=== PATIENT | female | born 1985 | race Caucasian/White ===

== ENCOUNTER 2019-03-02 14:00 | Emergency (ER) | payer SELFPAY ==
--- NOTE | 2019-03-02 15:43 | EDM.PDOC ---
ED HPI GENERAL MEDICAL PROBLEM - General Chief Complaint: Abdominal Pain Stated Complaint: 9 1/2 WEEKS PG - ABDOMINAL PAIN Time Seen by Provider: 03/02/19 14:14 Source of Information: Reports: Patient, RN Notes Reviewed History Limitations: Reports: No Limitations - History of Present Illness INITIAL COMMENTS - FREE TEXT/NARRATIVE: Patient is a 33-year-old female who presents to the ED for the evaluation of left lower quadrant pain. She states that she is around 9-1/2 weeks . She notes that the left lower quadrant pain started 3 days ago with some left flank pain. She drink more fluids because she was worried about a possible kidney infection as she has history of those. She notes that the pain initially got better over the weekend but today the pain came back at around 11 AM and has not let up since. She denies any fevers/chills, dysuria, urgency, frequency, vaginal bleeding, history of diverticulitis and does not have any CVA tenderness at this time, she denies any history of ovarian cysts as well. There is somewhat of a language barrier as she is not fluent in [place] and speaks mostly [place]. Her significant other is present in the room to interpret for her. The family is not from the area and they have not had an initial OB visit but plan to do their OB doctoring in their home town. 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: - Past Surgical History Female Surgical History: Reports: Section Social & Family History - Family History Family Medical History: Noncontributory - Tobacco Use Smoking Status *Q: Former Smoker Used Tobacco, but Quit: Yes Month/Year Tobacco Last Used: 2019 - Caffeine Use Caffeine Use: Reports: Coffee - Recreational Drug Use Recreational Drug Use: No ED ROS GENERAL - Review of Systems Review Of Systems: See Below Constitutional: Reports: No Symptoms HEENT: Reports: No Symptoms Respiratory: Reports: No Symptoms Cardiovascular: Reports: No Symptoms Endocrine: Reports: No Symptoms GI/Abdominal: Reports: Abdominal Pain (LLQ). Denies: Anorexia, Bloody Stool, Constipation, Diarrhea, Nausea, Vomiting Musculoskeletal: Reports: Other (left flank pain) Skin: Reports: No Symptoms Neurological: Reports: No Symptoms Psychiatric: Reports: No Symptoms Hematologic/Lymphatic: Reports: No Symptoms Immunologic: Reports: No Symptoms ED EXAM, GI/ABD - Physical Exam Exam: See Below Exam Limited By: Language Barrier (significant other present for exam and helps for interpretation.) General Appearance: Alert, WD/WN, No Apparent Distress Eyes: Bilateral: Normal Appearance Ears: Normal External Exam Nose: Normal Inspection Throat/Mouth: Normal Inspection, Normal Lips, Normal Teeth, Normal Gums, Normal Oropharynx, Normal Voice, No Airway Compromise Head: Atraumatic, Normocephalic Neck: Normal Inspection Respiratory/Chest: No Respiratory Distress, Lungs Clear, Normal Breath Sounds, No Accessory Muscle Use, Chest Non-Tender Cardiovascular: Normal Peripheral Pulses, Regular Rate, Rhythm, No Murmur GI/Abdominal Exam: Normal Bowel Sounds, Soft, No Distention, Tender (LLQ) Back Exam: Normal Inspection. No: CVA Tenderness (L), CVA Tenderness (R) Extremities: Normal Inspection, Normal Capillary Refill Neurological: Alert, Oriented, Normal Cognition, No Motor/Sensory Deficits Psychiatric: Normal Affect, Normal Mood Course - Vital Signs Last Recorded V/S: Last Vital Signs Temp 98.2 F 03/02/19 14:07 Pulse 80 03/02/19 14:07 Resp 16 03/02/19 14:07 BP 124/86 03/02/19 14:07 Pulse Ox 99 03/02/19 14:07 - Orders/Labs/Meds Labs: Laboratory Tests 03/02/19 03/02/19 03/02/19 Range/Units 14:20 14:20 15:25 WBC 7.54 (3.98-10.04) K/mm3 RBC 4.08 (3.98-5.22) M/mm3 Hgb 12.6 (11.2-15.7) gm/L Hct 38.6 (34.1-44.9) % MCV 94.6 (79.4-94.8) fl MCH 30.9 (25.6-32.2) pg MCHC 32.6 (32.2-35.5) g/dl RDW Std Deviation 43.6 (36.4-46.3) fL Plt Count 244 (182-369) K/mm3 MPV 10.9 (9.4-12.3) fl Neutrophils % (Manual) 60 (40-60) % Band Neutrophils % 2 (0-10) % Lymphocytes % (Manual) 30 (20-40) % Atypical Lymphs % 0 % Monocytes % (Manual) 7 (2-10) % Eosinophils % (Manual) 1 (0.7-5.8) % Basophils % (Manual) 0 L (0.1-1.2) Platelet Estimate Adequate RBC Morph Comment Normal Sodium (136-145) mEq/L Potassium (3.5-5.1) mEq/L Chloride (98-107) mEq/L Carbon Dioxide (21-32) mEq/L Anion Gap (5-15) BUN (7-18) mg/dL Creatinine (0.55-1.02) mg/dL Est Cr Clr Drug Dosing mL/min Estimated GFR (MDRD) (>60) mL/min BUN/Creatinine Ratio (14-18) Glucose (74-106) mg/dL Calcium (8.5-10.1) mg/dL Total Bilirubin (0.2-1.0) mg/dL AST (15-37) U/L ALT (14-59) U/L Alkaline Phosphatase (46-116) U/L C-Reactive Protein (<1.0) mg/dL Total Protein (6.4-8.2) g/dl Albumin (3.4-5.0) g/dl Globulin gm/dL Albumin/Globulin Ratio (1-2) HCG, Quant mIU/mL Urine Color Yellow (Yellow) Urine Appearance Slt cloudy H (Clear) Urine pH 7.5 (5.0-8.0) Ur Specific [place] 1.020 (1.005-1.030) Urine Protein Negative (Negative) Urine Glucose (UA) Negative (Negative) Urine Ketones Negative (Negative) Urine Occult Blood Trace-lysed H (Negative) Urine Nitrite Negative (Negative) Urine Bilirubin Negative (Negative) Urine Urobilinogen 0.2 (0.2-1.0) Ur Leukocyte Esterase Negative (Negative) Urine RBC 0-5 (0-5) /hpf Urine WBC 0-5 (0-5) /hpf Ur Epithelial Cells 5-10 H (0-5) /hpf Urine Bacteria Few (FEW) /hpf Urine Mucus Few (FEW) /hpf Urine HCG, Qual Positive (NEGATIVE) 03/02/19 Range/Units 15:25 WBC (3.98-10.04) K/mm3 RBC (3.98-5.22) M/mm3 Hgb (11.2-15.7) gm/L Hct (34.1-44.9) % MCV (79.4-94.8) fl MCH (25.6-32.2) pg MCHC (32.2-35.5) g/dl RDW Std Deviation (36.4-46.3) fL Plt Count (182-369) K/mm3 MPV (9.4-12.3) fl Neutrophils % (Manual) (40-60) % Band Neutrophils % (0-10) % Lymphocytes % (Manual) (20-40) % Atypical Lymphs % % Monocytes % (Manual) (2-10) % Eosinophils % (Manual) (0.7-5.8) % Basophils % (Manual) (0.1-1.2) Platelet Estimate RBC Morph Comment Sodium 138 (136-145) mEq/L Potassium 3.8 (3.5-5.1) mEq/L Chloride 104 (98-107) mEq/L Carbon Dioxide 27 (21-32) mEq/L Anion Gap 10.8 (5-15) BUN 14 (7-18) mg/dL Creatinine 0.8 (0.55-1.02) mg/dL Est Cr Clr Drug Dosing 95.45 mL/min Estimated GFR (MDRD) > 60 (>60) mL/min BUN/Creatinine Ratio 17.5 (14-18) Glucose 91 (74-106) mg/dL Calcium 9.0 (8.5-10.1) mg/dL Total Bilirubin 0.2 (0.2-1.0) mg/dL AST 17 (15-37) U/L ALT 21 (14-59) U/L Alkaline Phosphatase 48 (46-116) U/L C-Reactive Protein < 0.2 (<1.0) mg/dL Total Protein 6.8 (6.4-8.2) g/dl Albumin 3.5 (3.4-5.0) g/dl Globulin 3.3 gm/dL Albumin/Globulin Ratio 1.1 (1-2) HCG, Quant 314538.0 mIU/mL Urine Color (Yellow) Urine Appearance (Clear) Urine pH (5.0-8.0) Ur Specific [place] (1.005-1.030) Urine Protein (Negative) Urine Glucose (UA) (Negative) Urine Ketones (Negative) Urine Occult Blood (Negative) Urine Nitrite (Negative) Urine Bilirubin (Negative) Urine Urobilinogen (0.2-1.0) Ur Leukocyte Esterase (Negative) Urine RBC (0-5) /hpf Urine WBC (0-5) /hpf Ur Epithelial Cells (0-5) /hpf Urine Bacteria (FEW) /hpf Urine Mucus (FEW) /hpf Urine HCG, Qual (NEGATIVE) - Re-Assessments/Exams Free Text/Narrative Re-Assessment/Exam: 03/02/19 15:46 Patient presents to the ED for the evaluation of left lower quadrant pain. Have ordered a UA, CBC, CMP, CRP, hCG qualitative and quantitative collection for further evaluation. Departure - Departure Time of Disposition: 17:15 Disposition: Home, Self-Care 01 Condition: Fair Clinical Impression: Colicky LLQ abdominal pain - Discharge Information *PRESCRIPTION DRUG MONITORING PROGRAM REVIEWED*: No *COPY OF PRESCRIPTION DRUG MONITORING REPORT IN PATIENT RANGEL: No Instructions: Flank Pain, Adult, [id number], Round Ligament Pain Referrals: PCP,None [Primary Care Provider] - Forms: ED Department Discharge Additional Instructions: You have been evaluated in the ED today for your left lower abdominal pain. Your hormone level is in an appropriate level for your gestational age. The pain you're having may be likely due to stretching of the ligaments due to the increasing uterus size, or the possibility of a passing kidney stone. Your urinalysis did not demonstrate any bacterial infection at this time however there was a small amount of trace blood cells in your urine which would also be indicative of a small kidney stone. Please increase your fluid intake and you may take [id number] Tylenol for pain relief. Do not take over 4000mg in a 24 hour time span however. If you should develop increasing abdominal pains, vaginal bleeding, this would be cause for concern to return to the ED immediately for re-evaluation. Please return to the ED if your symptoms change or worsen.
== END 2019-03-02 17:36 | disposition home or self-care (01) ==
LOC: JD.ED 14:00
DX: O99.89 Other specified diseases and conditions complicating pregnancy, childbirth and the puerperium (principal); R10.32 Left lower quadrant pain; O09.511 Supervision of elderly primigravida, first trimester; Z3A.09 9 weeks gestation of pregnancy; Z87.891 Personal history of nicotine dependence
CPT/HCPCS: 36415; 80053; 81001; 81025; 84702; 85007; 85027; 86140; 99283; 99284

== ENCOUNTER 2019-03-16 22:19 | Inpatient (IN) | payer OTHER ==
--- NOTE | 2019-03-16 22:49 | EDM.PDOC ---
ED HPI GENERAL MEDICAL PROBLEM - General Chief Complaint: Flank Pain Stated Complaint: 12WKS PG/LOWER BACK PAIN Time Seen by Provider: 03/16/19 22:49 Source of Information: Reports: Patient History Limitations: Reports: No Limitations - History of Present Illness INITIAL COMMENTS - FREE TEXT/NARRATIVE: 33-year-old female who is 2 para 1 presents to the ED with fever chills and rigors at the time I'm seeing her. Pain started in bilateral flank about 1400 hrs. today. Worse on the left as compared to the right. Pain radiates around to the left lower abdomen and groin. She developed fever and chills this evening. She does complain of mild dysuria both at onset of micturition and terminal dysuria. Has not noticed any blood in her urine. Has no history of kidney stones. Abdominal surgery as a performed for first . Denies cough or sputum production. Loss of appetite did not eat any supper. Is feeling nauseated without vomiting yet. She doesn't think she's ever had a kidney infection before. Onset: Today Onset Date: 03/16/19 Onset Time: 14:00 Duration: Hour(s):, Getting Worse Location: Reports: Generalized (Generalized back pain worse on the left side as compared to the right. Development of fever chills with rigors tonight. She is shaking with chills at the time of my examination. She is warm to palpation.) Quality: Reports: Ache, Pressure Severity: Moderate Improves with: Reports: None (Pain is 8 out of 10 in left kidney area.) Worsens with: Reports: None Context: Reports: Other (Acute onset of fever chills and bilateral back pain suggestive of pyelonephritis. Complicated by 12 week gestation.). Denies: Activity, Exercise, Lifting, Sick Contact, Trauma Associated Symptoms: Reports: Fever/Chills, Loss of Appetite, Malaise, Nausea/ Vomiting, Weakness. Denies: Confusion, Chest Pain, Cough, cough w sputum, Diaphoresis, Headaches, Rash, Seizure (Nausea without vomiting), Shortness of Breath, Syncope Treatments CLERICAL SPECIALIST: Reports: Acetaminophen, Other (see below) Other Treatments CLERICAL SPECIALIST: tylenol Bilateral Flank Pain Score (Numeric/FACES): 10 - Related Data Allergies Allergy/AdvReac Type Severity Reaction Status Date / Time No Known Allergies Allergy Verified 03/02/19 14:07 Home Meds: Home Meds PNV95/Ferrous Fumarate/FA [ Tablet] 1 tab PO DAILY 03/16/19 [History] Past Medical History Genitourinary History: Reports: Pyelonephritis, 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 This would make her 13 weeks 6 days by dates. She has not yet had any care and has not had an ultrasound in .) - Past Surgical History Female Surgical History: Reports: Section Social & Family History - Family History Family Medical History: Noncontributory - Tobacco Use Smoking Status *Q: Former Smoker Used Tobacco, but Quit: Yes Month/Year Tobacco Last Used: 3 months - Caffeine Use Caffeine Use: Reports: Coffee - Recreational Drug Use Recreational Drug Use: No - Living Situation & Occupation Living situation: Reports: Single Occupation: Employed ED ROS GENERAL - Review of Systems Review Of Systems: See Below Constitutional: Reports: Fever, Chills, Malaise, Weakness, Fatigue, Decreased Appetite HEENT: Reports: No Symptoms Respiratory: Reports: No Symptoms Cardiovascular: Reports: No Symptoms Endocrine: Reports: No Symptoms GI/Abdominal: Reports: Abdominal Pain (Left upper quadrant left jose miguel-abdominal pain rating down towards her groin.), Other (Bowel movement today was normal without any blood.). Denies: Constipation, Diarrhea, Decreased Appetite : Reports: Dysuria, Flank Pain (Both at onset of micturition and terminal dysuria.), Frequency, Other (Currently 13 weeks 6 days by dates). Denies: Hematuria ( Lateral worked much worse on the left and on the right.) Musculoskeletal: Reports: Back Pain Skin: Reports: No Symptoms Neurological: Reports: No Symptoms Psychiatric: Reports: No Symptoms Hematologic/Lymphatic: Reports: No Symptoms Immunologic: Reports: No Symptoms ED EXAM, RENAL/ - Physical Exam Exam: See Below Exam Limited By: No Limitations General Appearance: Alert, WD/WN, Moderate Distress, Other (She is febrile and shaking with rigors and chills the time my examination.) Eye Exam: Bilateral Eye: Normal Inspection Throat/Mouth: Normal Inspection, Normal Lips, Normal Oropharynx Head: Atraumatic, Normocephalic Neck: Normal Inspection, Supple, Non-Tender, Full Range of Motion. No: Lymphadenopathy (L), Lymphadenopathy (R) Respiratory/Chest: Lungs Clear, Normal Breath Sounds (Tachypnea 20/m.), No Accessory Muscle Use, Chest Non-Tender, Respiratory Distress Cardiovascular: Normal Peripheral Pulses, Regular Rate, Rhythm, No Edema, No Gallop, No Murmur, No Rub GI/Abdominal: No Organomegaly, Guarding, Tender (Tender left upper quadrant of the abdomen mildly tender right upper quadrant of the abdomen.), Abnormal Bowel Sounds (Bowels sounds are decreased from the normal.). No: Rigid, Rebound ( Mild guarding left upper quadrant of the abdomen) Back Exam: CVA Tenderness (L), CVA Tenderness (R), Other (Mild cerebral back pain is inferior to the kidneys bilaterally and very tender to touch or to percussion) Extremities: Normal Inspection, Normal Range of Motion, Non-Tender, No Pedal Edema Neurological: Alert, Oriented, CN II-XII Intact, Normal Cognition, Normal Gait Psychiatric: Other Skin Exam: Warm, Dry, Intact (She appears ill.), Normal Color, No Rash Course - Vital Signs Last Recorded V/S: Last Vital Signs Temp 37.3 C 03/16/19 22:28 Pulse 103 H 03/16/19 22:28 Resp 20 03/16/19 22:28 BP 130/75 03/16/19 22:28 Pulse Ox 98 03/16/19 22:28 - Orders/Labs/Meds Orders: Active Orders 24 hr Category Date Time Status CULTURE BLOOD [BC] Stat Lab 03/16/19 23:02 Received CULTURE BLOOD [BC] Stat Lab 03/16/19 23:02 Received CULTURE URINE [RM] Stat Lab 03/17/19 01:11 Received Dextrose 5%-0.9% NaCl [Dextrose 5%-Normal Saline] 1,000 Med 03/16/19 23:00 Active ml IV ASDIRECTED Blood Culture x2 Reflex Set [OM.PC] Stat Oth 03/16/19 22:56 Ordered Medication Orders Dextrose/Sodium Chloride (Dextrose 5%-Normal Saline) 1,000 mls @ 500 mls/hr IV ASDIRECTED SHAHRAM Last Admin: 03/16/19 23:07 Dose: 500 mls/hr Labs: Laboratory Tests 03/16/19 03/16/19 03/16/19 Range/Units 23:02 23:02 23:45 WBC 7.88 (3.98-10.04) K/mm3 RBC 4.35 (3.98-5.22) M/mm3 Hgb 13.1 (11.2-15.7) gm/L Hct 40.7 (34.1-44.9) % MCV 93.6 (79.4-94.8) fl MCH 30.1 (25.6-32.2) pg MCHC 32.2 (32.2-35.5) g/dl RDW Std Deviation 43.5 (36.4-46.3) fL Plt Count 228 (182-369) K/mm3 MPV 10.5 (9.4-12.3) fl Neutrophils % (Manual) 88 H (40-60) % Band Neutrophils % 3 (0-10) % Lymphocytes % (Manual) 8 L (20-40) % Atypical Lymphs % 0 % Monocytes % (Manual) 1 L (2-10) % Eosinophils % (Manual) 0 L (0.7-5.8) % Basophils % (Manual) 0 L (0.1-1.2) Platelet Estimate Adequate Plt Morphology Comment Normal RBC Morph Comment Normal Sodium 136 (136-145) mEq/L Potassium 3.6 (3.5-5.1) mEq/L Chloride 102 (98-107) mEq/L Carbon Dioxide 23 (21-32) mEq/L Anion Gap 14.6 (5-15) BUN 12 (7-18) mg/dL Creatinine 0.8 (0.55-1.02) mg/dL Est Cr Clr Drug Dosing 95.45 mL/min Estimated GFR (MDRD) > 60 (>60) mL/min BUN/Creatinine Ratio 15.0 (14-18) Glucose 112 H (74-106) mg/dL Calcium 9.2 (8.5-10.1) mg/dL Total Bilirubin 0.4 (0.2-1.0) mg/dL AST 33 (15-37) U/L ALT 66 H (14-59) U/L Alkaline Phosphatase 48 (46-116) U/L C-Reactive Protein 0.7 (<1.0) mg/dL Total Protein 7.2 (6.4-8.2) g/dl Albumin 3.5 (3.4-5.0) g/dl Globulin 3.7 gm/dL Albumin/Globulin Ratio 1.0 (1-2) HCG, Quant 07149.0 mIU/mL Urine Color (Yellow) Urine Appearance (Clear) Urine pH (5.0-8.0) Ur Specific [place] (1.005-1.030) Urine Protein (Negative) Urine Glucose (UA) (Negative) Urine Ketones (Negative) Urine Occult Blood (Negative) Urine Nitrite (Negative) Urine Bilirubin (Negative) Urine Urobilinogen (0.2-1.0) Ur Leukocyte Esterase (Negative) Urine RBC (0-5) /hpf Urine WBC (0-5) /hpf Urine WBC Clumps (NOT SEEN) /hpf Ur Squamous Epith Cells (0-5) /hpf Urine Bacteria (FEW) /hpf Urine Mucus (FEW) /hpf 03/16/19 Range/Units 23:46 WBC (3.98-10.04) K/mm3 RBC (3.98-5.22) M/mm3 Hgb (11.2-15.7) gm/L Hct (34.1-44.9) % MCV (79.4-94.8) fl MCH (25.6-32.2) pg MCHC (32.2-35.5) g/dl RDW Std Deviation (36.4-46.3) fL Plt Count (182-369) K/mm3 MPV (9.4-12.3) fl Neutrophils % (Manual) (40-60) % Band Neutrophils % (0-10) % Lymphocytes % (Manual) (20-40) % Atypical Lymphs % % Monocytes % (Manual) (2-10) % Eosinophils % (Manual) (0.7-5.8) % Basophils % (Manual) (0.1-1.2) Platelet Estimate Plt Morphology Comment RBC Morph Comment Sodium (136-145) mEq/L Potassium (3.5-5.1) mEq/L Chloride (98-107) mEq/L Carbon Dioxide (21-32) mEq/L Anion Gap (5-15) BUN (7-18) mg/dL Creatinine (0.55-1.02) mg/dL Est Cr Clr Drug Dosing mL/min Estimated GFR (MDRD) (>60) mL/min BUN/Creatinine Ratio (14-18) Glucose (74-106) mg/dL Calcium (8.5-10.1) mg/dL Total Bilirubin (0.2-1.0) mg/dL AST (15-37) U/L ALT (14-59) U/L Alkaline Phosphatase (46-116) U/L C-Reactive Protein (<1.0) mg/dL Total Protein (6.4-8.2) g/dl Albumin (3.4-5.0) g/dl Globulin gm/dL Albumin/Globulin Ratio (1-2) HCG, Quant mIU/mL Urine Color Yellow (Yellow) Urine Appearance Turbid H (Clear) Urine pH 7.0 (5.0-8.0) Ur Specific [place] 1.020 (1.005-1.030) Urine Protein 1+ H (Negative) Urine Glucose (UA) Negative (Negative) Urine Ketones Negative (Negative) Urine Occult Blood 2+ H (Negative) Urine Nitrite Positive H (Negative) Urine Bilirubin Negative (Negative) Urine Urobilinogen 0.2 (0.2-1.0) Ur Leukocyte Esterase 1+ H (Negative) Urine RBC 20-30 H (0-5) /hpf Urine WBC 20-30 H (0-5) /hpf Urine WBC Clumps Few (NOT SEEN) /hpf Ur Squamous Epith Cells 5-10 H (0-5) /hpf Urine Bacteria Moderate H (FEW) /hpf Urine Mucus Moderate H (FEW) /hpf Meds: Medications Generic Name Dose Route Start Last Admin Trade Name Celestino PRN Reason Stop Dose Admin Dextrose/Sodium Chloride 1,000 mls @ 500 mls/hr 03/16/19 23:00 03/16/19 23:07 Dextrose 5%-Normal Saline IV 500 mls/hr ASDIRECTED SHAHRAM Administration Discontinued Medications Generic Name Dose Route Start Last Admin Trade Name Celestino PRN Reason Stop Dose Admin Acetaminophen 975 mg 03/16/19 22:56 03/16/19 23:27 Tylenol PO 03/16/19 22:57 975 mg NOW ONE Administration Acetaminophen 650 mg 03/17/19 01:37 03/17/19 01:44 Tylenol PO 03/17/19 01:38 650 mg NOW ONE Administration Hydromorphone HCl 0.5 mg 03/16/19 22:55 03/16/19 23:09 Dilaudid IVPUSH 03/16/19 22:56 0.5 mg ONETIME ONE Administration Ceftriaxone Sodium 2 gm/ 100 mls @ 200 mls/hr 03/16/19 23:15 03/16/19 23:32 Sodium Chloride IV 03/16/19 23:44 200 mls/hr ONETIME ONE Administration Metoclopramide HCl 7.5 mg 03/16/19 22:55 03/16/19 23:08 Reglan IVPUSH 03/16/19 22:56 7.5 mg ONETIME ONE Administration - Radiology Interpretation Free Text/Narrative:: 33-year-old female presents to the ED with a known second trimester early . By dates using gender 22nd is her date of her last trimester. She will be 13 weeks and 6 days. She presents to the ED with bilateral flank pain worse in the left as compared to the right starting about mid afternoon today. Associated development of fever chills and nausea tonight. At the time my examination she is shaking with rigors/chills. No history of kidney stones. Examination reveals her to be febrile. She is tender both upper quadrants and then worse on the left as compared to the right. Postop diffuse back pain inferior to the kidneys bilaterally. Clinically she has bilateral polynephritis. And urinalysis. IV will be D5 normal saline at 500 mils per hour. She will be given Dilaudid 0.5 mg IV for flank pain and Reglan 7.5 mg to reduce nausea. She'll be given Tylenol 975 mg by mouth for fever relief 20 minutes after the Reglan has been given to ensure that it stays down. The cultures 2 will be done as well. Will give HER-2 grams of Rocephin as soon as the blood cultures 2 been completed. - Re-Assessments/Exams Free Text/Narrative Re-Assessment/Exam: 03/17/19 00:26 The hematology is back. White count is in the normal range at 7.88. However the differential is 88% neutrophils and 3% band cells. Hemoglobin is 13.1 with hematocrit of 40.7. Platelet count 220,000. Chemistry is pending. 03/17/19 01:11Labs are back. White count is elevated at 7.88 with shift of the left 88% neutrophils and 3% band cells. Hemoglobin is 13.1 with hematocrit of 40.7. Platelet count is 228,000. Sodium 136 with a potassium of 3.6. Chloride 102 with a bicarbonate of 23. And a gap is 14.6. BUN was 12 with a creatinine of 0.8. GFR was remains greater than 60. Glucose is 112. Total bilirubin is 0.4. AST is 33. ALT is 66. Alkaline phosphatase normal at 48. C-reactive protein is 0.7. The urinalysis shows turbid appearance 1+ proteinuria 2+ occult blood positive nitrates 1+ leukocyte esterase.Micro on the urine is pending. 03/17/19 01:33 The micro-on the urine shows 1+ leukocyte esterase. 20-30 RBCs per power field with 20-30 WBCs per high-power field with few white blood cell clumps. Moderate bacteria appreciated urine culture ordered. 03/17/19 01:34 The micro-shows 20-30 RBCs per per field and 20-30 white blood cells per per Renee field with some white blood cell clumping. Moderate bacteria appreciated. Bedside ultrasound confirms that she is indeed . The ross gestation could not be fully assessed as her bladder is fairly empty. It was a poor study. I did not detect any obvious movement. I do believe heart beat appreciated. I will speak with Dr. Linda who is on-call for WATERPROOFER HELPER with a view to having her admitted to the hospital with urosepsis at this point in time. This does produce place her at high risk of compromise. 03/17/19 02:30 quantitative beta-hCG is 95,175. I will get her admitted to OB under the care of Dr. Linda environmental advisor WATERPROOFER HELPER at this time. 03/17/19 02:[address] Linda environmental advisor --REGIONAL EXTENSION SERVICE SPECIALIST at this time and he is accepted care. She will be admitted to med surgery per observation status is as the only bed we have available in the hospital. Bridge orders were written. Departure - Departure Time of Disposition: 02:47 Disposition: Refer to Observation Condition: Fair Clinical Impression: Pyelonephritis affecting in second trimester, Febrile illness, acute , Flank pain Nausea and vomiting Qualifiers: Vomiting type: bilious vomiting Qualified Code(s): R11.14 - Bilious vomiting - Discharge Information *PRESCRIPTION DRUG MONITORING PROGRAM REVIEWED*: Not Applicable *COPY OF PRESCRIPTION DRUG MONITORING REPORT IN PATIENT RANGEL: Not Applicable Referrals: PCP,Not In Area [Primary Care Provider] - Forms: ED Department Discharge - My Orders Last 24 Hours: My Active Orders 03/16/19 22:56 Blood Culture x2 Reflex Set [OM.PC] Stat 03/16/19 23:00 Dextrose 5%-0.9% NaCl [Dextrose 5%-Normal Saline] 1,000 ml IV ASDIRECTED 03/16/19 23:02 CULTURE BLOOD [BC] Stat CULTURE BLOOD [BC] Stat 03/17/19 01:11 CULTURE URINE [RM] Stat - Assessment/Plan Last 24 Hours: My Active Orders 03/16/19 22:56 Blood Culture x2 Reflex Set [OM.PC] Stat 03/16/19 23:00 Dextrose 5%-0.9% NaCl [Dextrose 5%-Normal Saline] 1,000 ml IV ASDIRECTED 03/16/19 23:02 CULTURE BLOOD [BC] Stat CULTURE BLOOD [BC] Stat 03/17/19 01:11 CULTURE URINE [RM] Stat
[2019-03-16] MEDS ORDERED: Metoclopramide 10 MG/2 ML SDV IVPUSH ONE (22:55)
[2019-03-16] MEDS ORDERED: HYDROmorphone 1 MG/ML Syringe IVPUSH ONE (22:55)
[2019-03-16] MEDS ORDERED: Acetaminophen 325 MG Tab PO ONE (22:56)
[2019-03-16] MEDS ORDERED: Dextrose 5%-0.9% NaCl 1,000 ML IV SCH (23:00)
[2019-03-16] MEDS ORDERED: cefTRIAXone 2 GM in Sodium Chloride 0.9% 100 ML IV ONE (23:15)
[2019-03-17] MEDS ORDERED: Acetaminophen 325 MG Tab PO ONE (01:37)
[2019-03-17] MEDS ORDERED: Dextrose 5%-0.9% NaCl with KCl 1,000 ML IV ONE (02:46)
[2019-03-17] MEDS ORDERED: Ondansetron 4 MG/2 ML SDV IVPUSH PRN (04:51)
[2019-03-17] MEDS ORDERED: HYDROmorphone 0.5 MG/0.5 ML Syringe IVPUSH PRN (04:52)
[2019-03-17] MEDS: Acetaminophen 325 MG Tab PO PRN ×3 (06:20→22:26)
[2019-03-17] MEDS: cefTRIAXone 1 GM in Sodium Chloride 0.9% 100 ML IV SCH ×2 (10:00→22:08)
[2019-03-17] MEDS ORDERED: cefTRIAXone 1 GM Vial IM SCH (11:00)
--- NOTE | 2019-03-17 11:16 | PCM.LDHP ---
L&D History of Present Illness - General Date of Service: 03/17/19 Admit Problem/Dx: Patient Status Order with Admit Dx/Problem 03/17/19 02:43 Admission Status [Patient Status] [ADT] Routine 03/17/19 02:44 Admission Status [Patient Status] [ADT] Routine Admission Diagnosis/Problem Admission Diagnosis/Problem Pyelonephritis affecting Source of Information: Patient History Limitations: Reports: No Limitations - History of Present Illness Introduction:: Dirty 3-year-old 001 LMP 12/23/18 with present estimated gestational age from LMP of 12 weeks. DYLAN from LMP 09/27/2019 Patient states she had onset of dysuria and frequency approximate 2 weeks ago was seen in the emergency room and the pain has increased since then to having left flank pain rated approximately 8 out of 10 on presentation to the emergency room, patient is having less pain now approximate 6 out of 10 with dysuria or frequency and some blood in her urine. The urinalysis showed nitrites positive and blood present. Patient has had a history of kidney stones in the past as well. Patient also had fever and was placed in the hospital on observation status at the present time on Rocephin 1 g IV every 12 hours for suspected pyelonephritis. Patient had no vaginal bleeding. See emergency room note. We will obtain OB ultrasound transvaginal and lower abdominal if needed as well as renal ultrasound to rule out stones. Location, : Reports: Flank (Approximately 1-2 days increased severity left flank some right flank pain but not as severe) Quality: Reports: Ache, Throbbing Severity: Moderate Pain Score: 8 Improves with: Reports: None Worsens with: Reports: None Associated Symptoms: Reports: N - Related Data Allergies/Adverse Reactions: Allergies Allergy/AdvReac Type Severity Reaction Status Date / Time No Known Allergies Allergy Verified 03/17/19 03:55 Home Medications: Home Meds PNV95/Ferrous Fumarate/FA [ Tablet] 1 tab PO DAILY 03/16/19 [History] Past Medical History Genitourinary History: Reports: Pyelonephritis, 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 - Recreational Drug Use Recreational Drug Use: No - Living Situation & Occupation Living situation: Reports: Single Occupation: Employed H&P Review of Systems - Review of Systems: Review Of Systems: See Below General: Reports: No Symptoms HEENT: Reports: No Symptoms Pulmonary: Reports: No Symptoms Cardiovascular: Reports: No Symptoms Gastrointestinal: Reports: No Symptoms Genitourinary: Reports: Dysuria, Frequency, Burning, Pain, Urgency, Flank Pain Musculoskeletal: Reports: No Symptoms Skin: Reports: No Symptoms Psychiatric: Reports: No Symptoms Neurological: Reports: No Symptoms Hematologic/Lymphatic: Reports: No Symptoms Immunologic: Reports: No Symptoms L&D Exam - Exam Exam: See Below - Vital Signs Vital Signs: Last Vital Signs Temp 98.2 F 03/17/19 08:06 Pulse 85 03/17/19 08:06 Resp 15 03/17/19 08:06 BP 92/56 L 03/17/19 08:06 Pulse Ox 97 03/17/19 08:06 Weight: 190 lb 6.4 oz - OB Specific Fundal Height In cm: 12 - Exam General: Alert, Oriented HEENT: Conjunctiva Clear, Mucosa Moist & [place], Pupils Equal, Pupils Reactive Neck: Supple, Trachea Midline Lungs: Clear to Auscultation, Normal Respiratory Effort Cardiovascular: Regular Rate, Regular Rhythm GI/Abdominal Exam: Normal Bowel Sounds, Soft, Non-Tender Genitourinary: Normal external exam (Uterus approximately 12 weeks size OB ultrasound has been ordered transvaginal/lower abdominal if needed) Back Exam: CVA Tenderness (L) (1/3), CVA Tenderness (R) (2/3) Extremities: Normal Inspection, Normal Range of Motion, Non-Tender, No Pedal Edema, Normal Capillary Refill Skin: Warm, Dry, Intact Psychiatric: Alert, Normal Affect, Normal Mood - Patient Data Lab Results Last 24 hrs: Laboratory Results - last 24 hr 03/16/19 03/16/19 03/16/19 Range/Units 23:02 23:02 23:45 WBC 7.88 (3.98-10.04) K/mm3 RBC 4.35 (3.98-5.22) M/mm3 Hgb 13.1 (11.2-15.7) gm/L Hct 40.7 (34.1-44.9) % MCV 93.6 (79.4-94.8) fl MCH 30.1 (25.6-32.2) pg MCHC 32.2 (32.2-35.5) g/dl RDW Std Deviation 43.5 (36.4-46.3) fL Plt Count 228 (182-369) K/mm3 MPV 10.5 (9.4-12.3) fl Neutrophils % (Manual) 88 H (40-60) % Band Neutrophils % 3 (0-10) % Lymphocytes % (Manual) 8 L (20-40) % Atypical Lymphs % 0 % Monocytes % (Manual) 1 L (2-10) % Eosinophils % (Manual) 0 L (0.7-5.8) % Basophils % (Manual) 0 L (0.1-1.2) Platelet Estimate Adequate Plt Morphology Comment Normal RBC Morph Comment Normal Sodium 136 (136-145) mEq/L Potassium 3.6 (3.5-5.1) mEq/L Chloride 102 (98-107) mEq/L Carbon Dioxide 23 (21-32) mEq/L Anion Gap 14.6 (5-15) BUN 12 (7-18) mg/dL Creatinine 0.8 (0.55-1.02) mg/dL Est Cr Clr Drug Dosing 95.45 mL/min Estimated GFR (MDRD) > 60 (>60) mL/min BUN/Creatinine Ratio 15.0 (14-18) Glucose 112 H (74-106) mg/dL Calcium 9.2 (8.5-10.1) mg/dL Total Bilirubin 0.4 (0.2-1.0) mg/dL AST 33 (15-37) U/L ALT 66 H (14-59) U/L Alkaline Phosphatase 48 (46-116) U/L C-Reactive Protein 0.7 (<1.0) mg/dL Total Protein 7.2 (6.4-8.2) g/dl Albumin 3.5 (3.4-5.0) g/dl Globulin 3.7 gm/dL Albumin/Globulin Ratio 1.0 (1-2) HCG, Quant 12197.0 mIU/mL Urine Color (Yellow) Urine Appearance (Clear) Urine pH (5.0-8.0) Ur Specific [place] (1.005-1.030) Urine Protein (Negative) Urine Glucose (UA) (Negative) Urine Ketones (Negative) Urine Occult Blood (Negative) Urine Nitrite (Negative) Urine Bilirubin (Negative) Urine Urobilinogen (0.2-1.0) Ur Leukocyte Esterase (Negative) Urine RBC (0-5) /hpf Urine WBC (0-5) /hpf Urine WBC Clumps (NOT SEEN) /hpf Ur Squamous Epith Cells (0-5) /hpf Urine Bacteria (FEW) /hpf Urine Mucus (FEW) /hpf 03/16/19 Range/Units 23:46 WBC (3.98-10.04) K/mm3 RBC (3.98-5.22) M/mm3 Hgb (11.2-15.7) gm/L Hct (34.1-44.9) % MCV (79.4-94.8) fl MCH (25.6-32.2) pg MCHC (32.2-35.5) g/dl RDW Std Deviation (36.4-46.3) fL Plt Count (182-369) K/mm3 MPV (9.4-12.3) fl Neutrophils % (Manual) (40-60) % Band Neutrophils % (0-10) % Lymphocytes % (Manual) (20-40) % Atypical Lymphs % % Monocytes % (Manual) (2-10) % Eosinophils % (Manual) (0.7-5.8) % Basophils % (Manual) (0.1-1.2) Platelet Estimate Plt Morphology Comment RBC Morph Comment Sodium (136-145) mEq/L Potassium (3.5-5.1) mEq/L Chloride (98-107) mEq/L Carbon Dioxide (21-32) mEq/L Anion Gap (5-15) BUN (7-18) mg/dL Creatinine (0.55-1.02) mg/dL Est Cr Clr Drug Dosing mL/min Estimated GFR (MDRD) (>60) mL/min BUN/Creatinine Ratio (14-18) Glucose (74-106) mg/dL Calcium (8.5-10.1) mg/dL Total Bilirubin (0.2-1.0) mg/dL AST (15-37) U/L ALT (14-59) U/L Alkaline Phosphatase (46-116) U/L C-Reactive Protein (<1.0) mg/dL Total Protein (6.4-8.2) g/dl Albumin (3.4-5.0) g/dl Globulin gm/dL Albumin/Globulin Ratio (1-2) HCG, Quant mIU/mL Urine Color Yellow (Yellow) Urine Appearance Turbid H (Clear) Urine pH 7.0 (5.0-8.0) Ur Specific [place] 1.020 (1.005-1.030) Urine Protein 1+ H (Negative) Urine Glucose (UA) Negative (Negative) Urine Ketones Negative (Negative) Urine Occult Blood 2+ H (Negative) Urine Nitrite Positive H (Negative) Urine Bilirubin Negative (Negative) Urine Urobilinogen 0.2 (0.2-1.0) Ur Leukocyte Esterase 1+ H (Negative) Urine RBC 20-30 H (0-5) /hpf Urine WBC 20-30 H (0-5) /hpf Urine WBC Clumps Few (NOT SEEN) /hpf Ur Squamous Epith Cells 5-10 H (0-5) /hpf Urine Bacteria Moderate H (FEW) /hpf Urine Mucus Moderate H (FEW) /hpf Result Diagrams: 03/16/19 23:02 03/16/19 23:02 Imaging Impressions Last 24 hrs: ultrasound retroperitoneal, complete No prior renal imaging. Findings: Kidney shows no hydronephrosis or mass. No peripharyngeal fluid is seen. Resistive at the indices are normal within both kidneys. No abnormality is seen within the bladder. Bilateral ureteral jets are seen. Measurements: Right kidney: Length 12.4 cm Left kidney: 10.3 cm Bladder: The prevoid volume 127 mL post void volume is 0 mL Impression: #1. No abnormalities appreciated on renal ultrasound exam. 03/17/2019 OB Ultradound OB transvaginal First trimester obstetrical ultrasound multiple real time images were obtained transvaginally. Dates: LMP: LMP given as 12/23/18, DYLAN 09/29/19, gestational age 12 weeks 0 days. Current ultrasound: DYLAN 10/01/19, gestational age 11 weeks 5 days. Single intrauterine gestational sac is seen. Embryo is noted. No subchorionic hemorrhage is seen. Right ovary shows an incidental corpus luteum cyst measuring 1.6 cm. Left ovary not visualized but left adnexa is unremarkable. Regimens: [place]-rump length: 57.27 mm12 weeks 2 days. Mean sac diameter: 5.08 cm11 weeks 1 day Heart rate: 1 55 bpm Impression: #1. Single intrauterine gestation. Dates as noted above. #2. No comp cutting process is identified by ultrasound. This note was created, at least in part, by the use of [employer] voice dictation system. Inadvertent typographical errors, due to software recognition problems, may exist. - Problem List (1) Multigravida in first trimester SNOMED Code(s): 624335130, 825143537 ICD Code: Z34.81 - ENCOUNTER FOR SUPRVSN OF NORMAL , FIRST TRIMESTER Status: Acute Current Visit: Yes (2) Pyelonephritis affecting in first trimester SNOMED Code(s): 50971118, 76948620, 844573147, 782004929 ICD Code: O23.01 - INFECTIONS OF KIDNEY IN , FIRST TRIMESTER Status: Acute Current Visit: Yes Problem List Initiated/Reviewed/Updated: No Orders Last 24hrs: Active Orders 24 hr Category Date Time Status Admission Status [Patient Status] [ADT] Routine ADT 03/17/19 02:43 Active Admission Status [Patient Status] [ADT] Routine ADT 03/17/19 02:44 Active Up ad [place] [RC] BID Care 03/17/19 04:44 Active Clear Liquid Diet [DIET] Diet 03/17/19 Breakfast Active Regular Diet [DIET] Diet 03/17/19 Dinner Active Kidney Ultrasound [Retroperitoneal Comp] [US] Routine Exams 03/17/19 11:04 Ordered Transvaginal Non OB [US] Routine Exams 03/17/19 11:02 Ordered CBC WITH AUTO DIFF [HEME] Routine Lab 03/18/19 05:00 Ordered CULTURE BLOOD [BC] Stat Lab 03/16/19 23:02 Received CULTURE BLOOD [BC] Stat Lab 03/16/19 23:02 Received CULTURE URINE [RM] Stat Lab 03/17/19 01:11 Received URINALYSIS W/MICROSCOPIC [UA W/MICROSCOPIC] [URIN] Stat Lab 03/16/19 22:56 Ordered Acetaminophen [Tylenol] Med 03/17/19 04:50 Active 650 mg PO Q4H PRN HYDROmorphone [Dilaudid] Med 03/17/19 04:52 Active 0.5 mg IVPUSH Q2H PRN Ondansetron [Zofran] Med 03/17/19 04:51 Active 4 mg IVPUSH Q4H PRN cefTRIAXone [Rocephin] 1 gm Med 03/17/19 11:00 Active Sodium Chloride 0.9% [Normal Saline] 100 ml IV Q12H Blood Culture x2 Reflex Set [OM.PC] Stat Oth 03/16/19 22:56 Ordered Code Status [Resuscitation Status] Routine Resus Stat 03/17/19 03:54 Ordered Medication Orders Acetaminophen (Tylenol) 650 mg PO Q4H PRN PRN Reason: Pain/Fever Last Admin: 03/17/19 10:00 Dose: 650 mg Admin: 03/17/19 06:20 Dose: 650 mg Hydromorphone HCl (Dilaudid) 0.5 mg IVPUSH Q2H PRN PRN Reason: Pain Ceftriaxone Sodium 1 gm/ (Sodium Chloride) 100 mls @ 200 mls/hr IV Q12H SHAHRAM Last Admin: 03/17/19 10:00 Dose: 200 mls/hr Ondansetron HCl (Zofran) 4 mg IVPUSH Q4H PRN PRN Reason: Nausea/Vomiting Assessment/Plan Comment:: Patient taking Rocephin 1 g IV every 12 hours. Patient has pain medication ordered. Nurse will check to see if patient qualifies for inpatient resident and observation status and report same. Anticipate IV antibiotics for at least another 24-48 hours possibly patient may be able to be dismissed on pending progress during the interval. This note was created, at least in part, by the use of [employer] voice dictation system. Inadvertent typographical errors, due to software recognition problems, may exist.
[2019-03-17] MEDS: Acetaminophen/oxyCODONE 325-5 MG Tab PO PRN ×2 (11:38→16:39)
--- NOTE | 2019-03-17 14:42 | US ---
First trimester obstetrical ultrasound: Multiple real-time images were obtained transvaginally. Dates: LMP: LMP given as 12/23/18, DYLAN 09/29/19, gestational age 12 weeks 0 days Current ultrasound: DYLAN 10/01/19, gestational age 11 weeks 5 days Single intrauterine gestational sac is seen. Embryo is noted. No subchorionic hemorrhage is seen. Right ovary shows an incidental corpus luteum cyst measuring 1.6 cm. Left ovary not visualized but left adnexa is unremarkable. Measurements: [place]-rump length: 57.27 mm - 12 weeks 2 days Mean sac diameter: 5.08 cm - 11 weeks 1 day Heart rate: 155 bpm Impression: 1. Single intrauterine gestation. Dates as noted above. 2. No complicating process is identified by ultrasound. Diagnostic code #1
--- NOTE | 2019-03-17 14:42 | US ---
Renal ultrasound: Multiple real-time images of the kidneys were obtained. Comparison: No prior renal imaging. Findings: Kidneys show no hydronephrosis or mass. No perinephric fluid is seen. Resistivity indices are normal within both kidneys. No abnormality is seen within the bladder. Bilateral ureteral jets are seen. Measurements: Right kidney length: 12.4 cm Left kidney: 10.3 cm Bladder: Prevoid volume 127 mL, post void volume is 0 mL Impression: 1. No abnormality is appreciated on renal ultrasound exam. Diagnostic code #1
[2019-03-18] MEDS: Acetaminophen/oxyCODONE 325-5 MG Tab PO PRN ×2 (02:41→15:09)
--- NOTE | 2019-03-18 08:37 | PCM.PN ---
- General Info Date of Service: 03/18/19 Subjective Update: Looks and states she is feeling much better. Less back pain both CVA areas. Afebrile T-max last 2400 98.2 F Functional Status: Reports: Pain Controlled - Review of Systems General: Reports: No Symptoms HEENT: Reports: No Symptoms Pulmonary: Reports: No Symptoms Cardiovascular: Reports: No Symptoms Gastrointestinal: Reports: No Symptoms Genitourinary: Reports: No Symptoms Musculoskeletal: Reports: No Symptoms Skin: Reports: No Symptoms Neurological: Reports: No Symptoms Psychiatric: Reports: No Symptoms - Patient Data Vitals - Most Recent: Last Vital Signs Temp 98.1 F 03/18/19 02:43 Pulse 64 03/18/19 02:43 Resp 16 03/18/19 02:43 BP 105/58 L 03/18/19 02:43 Pulse Ox 98 03/18/19 02:43 Weight - Most Recent: 190 lb 4.8 oz I&O - Last 24 Hours: Intake & Output 03/17/19 03/18/19 03/18/19 22:59 06:59 14:59 Intake Total 780 600 Balance 780 600 Lab Results Last 24 Hours: Laboratory Results - last 24 hr 03/18/19 Range/Units 06:15 WBC 7.41 (3.98-10.04) K/mm3 RBC 3.89 L (3.98-5.22) M/mm3 Hgb 11.8 (11.2-15.7) gm/L Hct 37.0 (34.1-44.9) % MCV 95.1 H (79.4-94.8) fl MCH 30.3 (25.6-32.2) pg MCHC 31.9 L (32.2-35.5) g/dl RDW Std Deviation 44.5 (36.4-46.3) fL Plt Count 194 (182-369) K/mm3 MPV 10.6 (9.4-12.3) fl Neut % (Auto) 69.4 (34.0-71.1) % Lymph % (Auto) 21.5 (19.3-51.7) % [place] % (Auto) 8.2 (4.7-12.5) % Eos % (Auto) 0.8 (0.7-5.8) Baso % (Auto) 0.0 L (0.1-1.2) % Neut # (Auto) 5.14 (1.56-6.13) K/mm3 Lymph # (Auto) 1.59 (1.18-3.74) K/mm3 [place] # (Auto) 0.61 H (0.24-0.36) K/mm3 Eos # (Auto) 0.06 (0.04-0.36) K/mm3 Baso # (Auto) 0.00 L (0.01-0.08) K/mm3 Dave Results Last 24 Hours: Microbiology 03/16/19 23:02 Aerobic Blood Culture - Preliminary Blood - Venous - Lab Draw NO GROWTH AFTER 1 DAY Anaerobic Blood Culture - Preliminary NO GROWTH AFTER 1 DAY 03/16/19 23:02 Aerobic Blood Culture - Preliminary Blood - Venous NO GROWTH AFTER 1 DAY Anaerobic Blood Culture - Preliminary NO GROWTH AFTER 1 DAY 03/16/19 23:46 Urine Culture - Preliminary Urine, Bladder Gram Negative Rods Med Orders - Current: Current Medications Acetaminophen (Tylenol) 650 mg PO Q4H PRN PRN Reason: Pain/Fever Last Admin: 03/17/19 22:26 Dose: 650 mg Hydromorphone HCl (Dilaudid) 0.5 mg IVPUSH Q2H PRN PRN Reason: Pain Ceftriaxone Sodium 1 gm/ (Sodium Chloride) 100 mls @ 200 mls/hr IV Q12H SHAHRAM Last Admin: 03/17/19 22:08 Dose: 200 mls/hr Ondansetron HCl (Zofran) 4 mg IVPUSH Q4H PRN PRN Reason: Nausea/Vomiting Oxycodone/Acetaminophen (Percocet 325-5 Mg) 1 - 2 tab PO Q6H PRN PRN Reason: Pain Last Admin: 03/18/19 02:41 Dose: 1 tab Discontinued Medications Acetaminophen (Tylenol) 975 mg PO NOW ONE Stop: 03/16/19 22:57 Last Admin: 03/16/19 23:27 Dose: 975 mg Acetaminophen (Tylenol) 650 mg PO NOW ONE Stop: 03/17/19 01:38 Last Admin: 03/17/19 01:44 Dose: 650 mg Hydromorphone HCl (Dilaudid) 0.5 mg IVPUSH ONETIME ONE Stop: 03/16/19 22:56 Last Admin: 03/16/19 23:09 Dose: 0.5 mg Dextrose/Sodium Chloride (Dextrose 5%-Normal Saline) 1,000 mls @ 500 mls/hr IV ASDIRECTED SHAHRAM Last Admin: 03/16/19 23:07 Dose: 500 mls/hr Ceftriaxone Sodium 2 gm/ (Sodium Chloride) 100 mls @ 200 mls/hr IV ONETIME ONE Stop: 03/16/19 23:44 Last Admin: 03/16/19 23:32 Dose: 200 mls/hr Potassium Chloride/Dextrose/Sod Cl (D5 Ns With 20 Meq Kcl) 1,000 mls @ 125 mls/ hr IV ONETIME ONE Stop: 03/17/19 10:45 Last Admin: 03/17/19 02:53 Dose: 125 mls/hr Metoclopramide HCl (Reglan) 7.5 mg IVPUSH ONETIME ONE Stop: 03/16/19 22:56 Last Admin: 03/16/19 23:08 Dose: 7.5 mg - Exam General: Alert, Oriented HEENT: Pupils Equal, Mucous Membr. Moist/[place] Neck: Supple Lungs: Clear to Auscultation, Normal Respiratory Effort Cardiovascular: Regular Rate, Regular Rhythm GI/Abdominal Exam: Normal Bowel Sounds, Soft, Non-Tender, No Mass Back Exam: Normal Inspection, Full Range of Motion, CVA Tenderness (L) (0/3 resolved), CVA Tenderness (R) (1/3 less than yesterday) Extremities: Normal Inspection, Normal Range of Motion, Non-Tender, No Pedal Edema, Normal Capillary Refill Skin: Warm, Dry, Intact Neurological: No New Focal Deficit Psy/Mental Status: Alert, Normal Affect, Normal Mood - Problem List & Annotations (1) Multigravida in first trimester SNOMED Code(s): 381036375, 340787109 Code(s): Z34.81 - ENCOUNTER FOR SUPRVSN OF NORMAL , FIRST TRIMESTER Status: Acute Current Visit: Yes (2) Pyelonephritis affecting in first trimester SNOMED Code(s): 93089224, 99476862, 360463318, 862369506 Code(s): O23.01 - INFECTIONS OF KIDNEY IN , FIRST TRIMESTER Status : Acute Current Visit: Yes - Problem List Review Problem List Initiated/Reviewed/Updated: No - My Orders Last 24 Hours: My Active Orders 03/17/19 11:00 cefTRIAXone [Rocephin] 1 gm Sodium Chloride 0.9% [Normal Saline] 100 ml IV Q12H 03/17/19 11:28 Acetaminophen/oxyCODONE [Percocet 325-5 MG] 1 - 2 tab PO Q6H PRN 03/17/19 11:46 Patient Status [ADT] Routine 03/17/19 Dinner Regular Diet [DIET] - Assessment Assessment:: Significant improvement from yesterday Plan 1130 Rocephin then discontinue and start Keflex 500 mg po q6h. Possibly home tomorrow. - Plan Plan:: Patient taking Rocephin 1 g IV every 12 hours. Patient has pain medication ordered. Nurse will check to see if patient qualifies for inpatient resident and observation status and report same. Anticipate IV antibiotics for at least another 24-48 hours possibly patient may be able to be dismissed on pending progress during the interval. This note was created, at least in part, by the use of [employer] voice dictation system. Inadvertent typographical errors, due to software recognition problems, may exist.
[2019-03-18] MEDS: Prenatal Multivitamin with Calcium/Folic Acid/Iron Tab PO SCH (10:38)
[2019-03-18] MEDS: cefTRIAXone 1 GM in Sodium Chloride 0.9% 100 ML IV SCH (10:39)
[2019-03-18] MEDS: Cephalexin 500 MG Cap PO SCH (17:56)
[2019-03-18] MEDS: Acetaminophen 325 MG Tab PO PRN (18:46)
[2019-03-19] MEDS: Cephalexin 500 MG Cap PO SCH ×2 (01:23→06:28)
[2019-03-19] MEDS: Prenatal Multivitamin with Calcium/Folic Acid/Iron Tab PO SCH (08:29)
--- NOTE | 2019-03-19 10:02 | PCM.DCSUM1 ---
Discharge Summary - Hospital Course Free Text/Narrative:: He was admitted to the hospital for treatment of pyelonephritis in early approximately 12 weeks estimated gestational age. Initially treated with Rocephin 1 g every 12 hours and then after becoming afebrile patient switched to Keflex 500 mg by mouth every 6 hours and will continue same as outpatient for 10 days. HPI Initial Comments: He was admitted to the hospital for treatment of pyelonephritis in early approximately 12 weeks estimated gestational age. Initially treated with Rocephin 1 g every 12 hours and then after becoming afebrile patient switched to Keflex 500 mg by mouth every 6 hours and will continue same as outpatient for 10 days. Brief History: He was admitted to the hospital for treatment of pyelonephritis in early approximately 12 weeks estimated gestational age. Initially treated with Rocephin 1 g every 12 hours and then after becoming afebrile patient switched to Keflex 500 mg by mouth every 6 hours and will continue same as outpatient for 10 days. Diagnosis: Stroke: No - Discharge Data Discharge Date: 03/19/19 Discharge Disposition: Home, Self-Care 01 Condition: Good - Discharge Diagnosis/Problem(s) (1) Multigravida in first trimester SNOMED Code(s): 115449515, 726730673 ICD Code: Z34.81 - ENCOUNTER FOR SUPRVSN OF NORMAL , FIRST TRIMESTER Status: Acute Current Visit: Yes (2) Pyelonephritis affecting in first trimester SNOMED Code(s): 33585756, 47315618, 418545531, 259657578 ICD Code: O23.01 - INFECTIONS OF KIDNEY IN , FIRST TRIMESTER Status: Acute Current Visit: Yes (3) E. coli pyelonephritis SNOMED Code(s): 62438716 ICD Code: N12 - TUBULO-INTERSTITIAL NEPHRITIS, NOT SPCF ACUTE OR CHRONIC; B96.20 - UNSP ESCHERICHIA COLI THE CAUSE OF DISEASES CLASSD ELSWHR Status: Acute Current Visit: Yes - Patient Summary/Data Operative Procedure(s) Performed: none Complications: None Consults: None Hospital Course: Uneventful - Patient Instructions Diet: Usual Diet as Tolerated Activity: As Tolerated Driving: May Drive Today Showering/Bathing: May Shower, No Tub Bathing/Swimming (10 days) Notify Provider of: Fever, Increased Pain, Swelling and Redness, Drainage, Nausea and/or Vomiting - Discharge Plan *PRESCRIPTION DRUG MONITORING PROGRAM REVIEWED*: Not Applicable *COPY OF PRESCRIPTION DRUG MONITORING REPORT IN PATIENT RANGEL: Not Applicable Prescriptions/Med Rec: cephALEXin [Keflex] 500 mg PO Q6HR #40 cap Home Medications: Home Meds PNV95/Ferrous Fumarate/FA [ Tablet] 1 tab PO DAILY 03/16/19 [History] Acetaminophen [Tylenol] 650 mg PO Q4H PRN tablet 03/19/19 [Rx] cephALEXin [Keflex] 500 mg PO Q6HR #40 cap 03/19/19 [Rx] Forms: ED Department Discharge Referrals: Donald Linda MD [Physician] - 03/26/19 10:45 am (Appointment is at 11: 15AM Be there at 10:45 for paperwork. ) PCP,Not In Area [Primary Care Provider] - - Discharge Summary/Plan Comment DC Time >30 min.: No - Patient Data Vitals - Most Recent: Last Vital Signs Temp 98.1 F 03/19/19 06:31 Pulse 88 03/19/19 06:31 Resp 18 03/19/19 06:31 BP 116/69 03/19/19 06:31 Pulse Ox 97 03/19/19 06:31 Weight - Most Recent: 190 lb I&O - Last 24 hours: Intake & Output 03/18/19 03/19/19 03/19/19 22:59 06:59 14:59 Intake Total 900 500 Balance 900 500 ELAINA Results - Last 24 hrs: Microbiology 03/16/19 23:02 Aerobic Blood Culture - Preliminary Blood - Venous - Lab Draw NO GROWTH AFTER 2 DAYS Anaerobic Blood Culture - Preliminary NO GROWTH AFTER 2 DAYS 03/16/19 23:02 Aerobic Blood Culture - Preliminary Blood - Venous NO GROWTH AFTER 2 DAYS Anaerobic Blood Culture - Preliminary NO GROWTH AFTER 2 DAYS 03/16/19 23:46 Urine Culture - Final Urine, Bladder Escherichia Coli Med Orders - Current: Current Medications Acetaminophen (Tylenol) 650 mg PO Q4H PRN PRN Reason: Pain/Fever Last Admin: 03/18/19 18:46 Dose: 650 mg Cephalexin (Keflex) 500 mg PO Q6HR SHAHRAM Last Admin: 03/19/19 06:28 Dose: 500 mg Hydromorphone HCl (Dilaudid) 0.5 mg IVPUSH Q2H PRN PRN Reason: Pain Ondansetron HCl (Zofran) 4 mg IVPUSH Q4H PRN PRN Reason: Nausea/Vomiting Oxycodone/Acetaminophen (Percocet 325-5 Mg) 1 - 2 tab PO Q6H PRN PRN Reason: Pain Last Admin: 03/18/19 15:09 Dose: 1 tab Prenat Multivit/Clay/Iron/Folic Ac ( Plus Iron) 1 each PO DAILY [facility] Last Admin: 03/19/19 08:29 Dose: 1 each Discontinued Medications Acetaminophen (Tylenol) 975 mg PO NOW ONE Stop: 03/16/19 22:57 Last Admin: 03/16/19 23:27 Dose: 975 mg Acetaminophen (Tylenol) 650 mg PO NOW ONE Stop: 03/17/19 01:38 Last Admin: 03/17/19 01:44 Dose: 650 mg Hydromorphone HCl (Dilaudid) 0.5 mg IVPUSH ONETIME ONE Stop: 03/16/19 22:56 Last Admin: 03/16/19 23:09 Dose: 0.5 mg Dextrose/Sodium Chloride (Dextrose 5%-Normal Saline) 1,000 mls @ 500 mls/hr IV ASDIRECTED [facility] Last Admin: 03/16/19 23:07 Dose: 500 mls/hr Ceftriaxone Sodium 2 gm/ (Sodium Chloride) 100 mls @ 200 mls/hr IV ONETIME ONE Stop: 03/16/19 23:44 Last Admin: 03/16/19 23:32 Dose: 200 mls/hr Potassium Chloride/Dextrose/Sod Cl (D5 Ns With 20 Meq Kcl) 1,000 mls @ 125 mls/ hr IV ONETIME ONE Stop: 03/17/19 10:45 Last Admin: 03/17/19 02:53 Dose: 125 mls/hr Ceftriaxone Sodium 1 gm/ (Sodium Chloride) 100 mls @ 200 mls/hr IV Q12H [facility] Stop: 03/18/19 13:00 Last Admin: 03/18/19 10:39 Dose: 200 mls/hr Metoclopramide HCl (Reglan) 7.5 mg IVPUSH ONETIME ONE Stop: 03/16/19 22:56 Last Admin: 03/16/19 23:08 Dose: 7.5 mg
== END 2019-03-19 11:08 | disposition home or self-care (01) | DRG 833 ==
LOC: JD.ED 22:19 → JD.MS 03-17 02:44 → OBSVTOIN 03-17 11:46 → JD.MS 03-17 16:50
PROVIDERS: ADMIT Obstetrics & Gynecology; ATTEND Obstetrics & Gynecology
DX: O23.01 Infections of kidney in pregnancy, first trimester (principal); Z3A.12 12 weeks gestation of pregnancy; B96.20 Unspecified Escherichia coli [E. coli] as the cause of diseases classified elsewhere; Z87.891 Personal history of nicotine dependence; Z87.442 Personal history of urinary calculi; O34.219 Maternal care for unspecified type scar from previous cesarean delivery; N85.8 Other specified noninflammatory disorders of uterus
CPT/HCPCS: 36415; 76770; 76770-26; 76817; 76817-26; 76830; 76830-26; 80053; 81001; 84702; 85007; 85025; 85027; 86140; 87040; 87086; 87088; 87186; 96361; 96365; 96375; 99284-25; 99285; A9270-GY; J0696; J1170; J2765; J3480; J7030; J7042